=== PATIENT | male | born 1950 | race Caucasian/White ===

== ENCOUNTER 2022-07-05 10:41 | Inpatient (IN) | payer MEDICARE ==
[2022-06-29 12:37] LABS: ALBUMIN 3.2 G/DL (3.4-5.0); ALKALINE PHOSPHATASE 92 IU/L (46-116); BLOOD UREA NITROGEN 23 MG/DL (7-18); BUN/CREATININE RATIO 19.3 (5.4-32.0); CALCIUM 9.1 MG/DL (8.5-10.1); CHLORIDE 106 MMOL/L (99-107); CREATININE 1.19 MG/DL (0.60-1.10); PRE OP ALT 25 U/L (30-65); PRE OP ANION GAP 9 (8-16); PRE OP AST 18 U/L (10-37); PRE OP BILIRUB, TOTAL 0.3 MG/DL (0.0-1.0); PRE OP GLUCOSE 118 MG/DL (70-104); PRE OP POTASSIUM 4.2 MMOL/L (3.4-5.1); PRE OP SODIUM 141 MMOL/L (135-145); TOTAL CARBON DIOXIDE 25.6 MMOL/L (24-32); TOTAL PROTEIN 6.5 G/DL (6.4-8.2); eGFR 60 ML/MIN
[2022-06-29 12:46] LABS: BASOPHILS # (AUTO) 0.1 X10'3 (0-0.2); EOSINOPHILS # (AUTO) 0.2 X10'3 (0-0.9); EOSINOPHILS % (AUTO) 2.3 % (0-6); LYMPHOCYTES # (AUTO) 1.7 X10'3 (1.1-4.8); LYMPHOCYTES % (AUTO) 25.2 % (21-51); MEAN CORPUSCULAR HEMOGLOBIN 31.8 PG (27.0-31.0); MEAN CORPUSCULAR HGB CONC 32.8 g/dL (33.0-36.5); MEAN PLATELET VOLUME 9.5 FL (7.4-10.4); MONOCYTES # (AUTO) 0.5 X10'3 (0-0.9); MONOCYTES % (AUTO) 7.3 % (2-12); NEUTROPHILS # (AUTO) 4.3 X10'3 (1.8-7.7); NEUTROPHILS % (AUTO) 64.2 % (42-75); PRE OP HEMATOCRIT 39.6 % (42.0-52.0); PRE OP PLATELET COUNT 227 X10'3 (140-440); RED BLOOD COUNT 4.08 X10'6 (4.70-6.10); RED CELL DISTRIBUTION WIDTH 14.5 % (11.5-14.5)
[2022-06-29 12:56] LABS: HEMOGLOBIN A1C 6.2 % (4.5-6.2)
[2022-07-05] VITALS (17 sets, daily range): BP systolic 109–136; BP diastolic 52–78
[~2022-07-05] VITALS: Ht 165.1 cm; Wt 124.6 kg
[~2022-07-05 10:41] MED LIST: ATOR40TA PO; CHOL50004 PO; CYAN50009 PO; IRON PO; MALTODEXTRIN/FRUCTOSE 0.68 KCAL/ML LIQUID 296ML BOTTLE PO ONE; METF-436 PO; PIOG15TA8 PO; [UNRECOGNIZED DRUG - OTHER] PO; ceFOXitin 2GM-NS 100mL ADDvant 100 ML IV ONE; famotidine 20mg tablet PO ONE; heparin, porcine 5000 units/ml vial SQ ONE; metroNIDAZOLE-Flagyl 500mg/NS 100ML IVPB IV ONE; ringers solution, lacted 1,000 ML IV SCH
--- NOTE | 2022-07-05 11:00 | NUR ---
PATIENT PREPARED FOR SURGERY, HE DRANK HIS ENSURE DRINK UPON ARRIVAL. IV STARTED WITHOUT DIFFICULTY IN LEFT HAND. PT STATES HE COMPLETED HIS BOWEL PREP AT 6 AM. HE CAME VIA UBER FROM THE [facility]. HIS FRIEND/PARTNER IS THERE WAITING FOR HIM UPON DISCHARGE, HE WILL NEED TO TAKE AN UBER BACK TO THE [place]EL AND SHE WILL DRIVE HOME. SHE DID NOT FEEL COMFORTABLE DRIVING AROUND THE HOSPITAL. PT STATES HE HAS MINIMAL HELP AT HOME. rEQUESTING DRIVERS' CASH CLERK CONSULT. PT HAS A LARGE ABDOMEN, WITH A LARGE BULGING UMBILICAL HERNIA PRESENT. WILL PLACE DRIVERS' CASH CLERK CONSULT. PT RELAXING WATCHING TELEVISION AWAITING SURGEON.
[2022-07-05] MEDS ORDERED: BUPIVAcaine 0.5% inj/PF 30 ML ONE (15:56)
[2022-07-05] MEDS ORDERED: LIDOCAINE 1%/EPI 1:100,000 inj. 10 ML multi-dose vial ONE (15:56)
[2022-07-05] MEDS ORDERED: tobramycin 40mg/ml inj ONE (15:58)
[2022-07-05] MEDS ORDERED: ringers solution, lacted 1,000 ML IV SCH (16:00)
[2022-07-05] MEDS ORDERED: proCHLORperazine 10 MG/2 ml inj IV PRN (16:00)
[2022-07-05] MEDS ORDERED: morphine 2 MG/ML inj. syringe IV PRN (16:00)
[2022-07-05] MEDS ORDERED: ondansetron/PF 4mg/2ml inj IV PRN (16:00)
[2022-07-05] MEDS ORDERED: morphine 4 MG/ML inj SYRINge IV PRN (16:00)
[2022-07-05] MEDS ORDERED: meperidine/PF 25mg/ml syringe IV PRN ×3 (16:00)
[2022-07-05] MEDS ORDERED: midazolam 1 mg/ML 2ml injection ONE (16:02)
[2022-07-05] MEDS ORDERED: fentaNYL /PF 50mcg/ml 5ml ampule ONE (16:02)
[2022-07-05] MEDS ORDERED: glycopyrrolate 0.2mg/ml inj ONE (16:12)
[2022-07-05] MEDS ORDERED: LIDOcaine 2% (20mg/ml) 5ml vial ONE (16:12)
[2022-07-05] MEDS ORDERED: dexamethasone sod phosphate 10mg/ml inj ONE (16:12)
[2022-07-05] MEDS ORDERED: sevoflurane 250ml liquid IH ONE (16:12)
[2022-07-05] MEDS ORDERED: propofol 10mg/ml 20ml vial IV ONE (16:12)
[2022-07-05] MEDS ORDERED: ondansetron/PF 4mg/2ml inj ONE (16:12)
[2022-07-05] MEDS ORDERED: neostigmine methylsulfate 1 MG/ML 10ml vial ONE (16:12)
[2022-07-05] MEDS ORDERED: rocuronium 10mg/ml inj IV ONE ×2 (16:17→16:54)
[2022-07-05] MEDS ORDERED: BUPIVAcaine 0.5% inj/PF 30 ml vial IJ ONE (17:43)
[2022-07-05] MEDS ORDERED: albumin (Human) 5% 250ml 250 ML IV ONE (18:53)
[2022-07-05] MEDS ORDERED: acetaminophen 1,000mg/100ml IV 100 ML IV ONE (18:53)
[2022-07-05] MEDS ORDERED: meperidine/PF 25mg/ml syringe ONE (19:01)
[2022-07-05] MEDS ORDERED: dextrose 50%-water 50ml dispensing syringe IV PRN ×2 (20:20)
[2022-07-05] MEDS ORDERED: naloxone 0.4 mg/ml inj IV PRN ×2 (20:20→20:35)
[2022-07-05] MEDS ORDERED: MESSAGE TO PHARMACY PO ONE (20:20)
[2022-07-05] MEDS ORDERED: glucagon, human recombinant 1mg kit SUBCUT PRN (20:20)
[2022-07-05] MEDS ORDERED: DEXTROSE 15 GM of carb/4 tabs (each vial/BOTTLE has 4 tablets) PO PRN ×2 (20:20)
[2022-07-05] MEDS ORDERED: PCA waste documentation MC SCH (20:35)
--- NOTE | 2022-07-05 20:42 | NUR ---
Received from OR via or bed , accompanied by Anesthesiologist and report given by Anesthesiologist. PATIENT A&OX4, drowsy, DENIES PAIN, V/S WNL, SCD ON , PIV 20G left hand 4 incision SITES CLOSED CDI TO ABDOMEN. F/C DRAINING CLEAR YELLOW URINE.
--- NOTE | 2022-07-05 20:44 | NUR ---
blood sugar 155
[2022-07-05] MEDS: HYDROmorph/NS 0.2 mg/ml PCA 100 ML IV SCH ×2 (20:56→23:00)
[2022-07-05] MEDS ORDERED: HYDROmorph/NS 0.2 mg/ml PCA 100 ML IV SCH (21:00)
--- NOTE | 2022-07-05 21:28 | NUR ---
REPORT CALLED TO SUDARSHAN SPRAGUE, PT TRANSFERRED WITH TRANSPORTER TO [facility] IN STABLE CONDITION. VITAL SIGNS STABLE, DRESSING DRY AND INTACT, IV INTACT NO SIGNS OF INFILTRATION
--- NOTE | 2022-07-05 21:45 | NUR ---
received pt from recovery room via bed, oriented to room and routine, dressing to abd cd&i Addendum: 07/06/22 at 0747 by Alejandra Ann RN Amended: Links added.
[2022-07-06] VITALS (7 sets, daily range): BP systolic 122–148; BP diastolic 53–81
[2022-07-06] MEDS: ceFOXitin inj 1,000 MG in normal saline 100ml IV soln 100 ML IV SCH ×2 (00:43→06:46)
[2022-07-06] MEDS: potassium CL 20mEq in D5-1/2NS 1,000 ML IV SCH ×2 (00:44→15:53)
[2022-07-06] MEDS: normal saline 1000ml 1,000 ML IV SCH (00:57)
[2022-07-06] MEDS: atorvastatin 20mg tablet PO SCH ×2 (00:58→21:16)
[2022-07-06] MEDS: HYDROmorph/NS 0.2 mg/ml PCA 100 ML IV SCH ×12 (01:00→23:00)
[2022-07-06] MEDS: metroNIDAZOLE-Flagyl 500mg/NS 100 ML IV SCH ×3 (01:41→15:48)
--- NOTE | 2022-07-06 06:00 | NUR ---
Patient in room [facility]. I have received report from Daphne SPRAGUE and had the opportunity to ask questions and assume patient care.
--- NOTE | 2022-07-06 06:30 | NUR ---
Problems reprioritized. Patient report given, questions answered & plan of care reviewed with CELESTINE Stanley. Addendum: 07/06/22 at 0749 by Alejandra Ann RN Amended: Links added.
[2022-07-06 07:22] LABS: BASOPHILS % (AUTO) 0.1 % (0-1); EOSINOPHILS % (AUTO) 0 % (0-6); HEMATOCRIT 38.6 % (42.0-52.0); LYMPHOCYTES # (AUTO) 0.7 X10'3 (1.1-4.8); LYMPHOCYTES % (AUTO) 8.2 % (21-51); MEAN CORPUSCULAR HEMOGLOBIN 32.6 PG (27.0-31.0); MEAN CORPUSCULAR HGB CONC 33.6 g/dL (33.0-36.5); MEAN CORPUSCULAR VOLUME 96.8 FL (78-98); MEAN PLATELET VOLUME 9.7 FL (7.4-10.4); MONOCYTES # (AUTO) 0.5 X10'3 (0-0.9); MONOCYTES % (AUTO) 5.9 % (2-12); NEUTROPHILS # (AUTO) 7.5 X10'3 (1.8-7.7); NEUTROPHILS % (AUTO) 85.8 % (42-75); PLATELET COUNT 179 X10'3 (140-440); RED BLOOD COUNT 3.99 X10'6 (4.70-6.10); WHITE BLOOD COUNT 8.7 X10'3 (4.5-11.0)
[2022-07-06 07:42] LABS: GLUCOSE 206 MG/DL (70-104); SODIUM 137 MMOL/L (135-145)
[2022-07-06 07:43] LABS: ALBUMIN 2.8 G/DL (3.4-5.0); ANION GAP 10 (8-16); BLOOD UREA NITROGEN 16 MG/DL (7-18); BUN/CREATININE RATIO 13.4 (5.4-32.0); CALCIUM 8.5 MG/DL (8.5-10.1); CHLORIDE 106 MMOL/L (99-107); CREATININE 1.19 MG/DL (0.60-1.10); POTASSIUM 4.4 MMOL/L (3.5-5.1); eGFR 60 ML/MIN
[2022-07-06] MEDS ORDERED: docusate sod 100mg capsule PO SCH (08:00)
[2022-07-06] MEDS: sennosides/docusate sodium tablet PO SCH ×2 (08:00→21:26)
[2022-07-06] MEDS: heparin, porcine 5000 units/ml vial SQ SCH ×2 (08:00→21:19)
[2022-07-06] MEDS: docusate sod 100mg capsule PO SCH ×2 (08:01→21:16)
--- NOTE | 2022-07-06 16:35 | NUR ---
patient ambulated x2 600ft total. BS hypoactive, has not passed gas yet . tolerating small amounts of clear liquids. dressings to abdomen CDI. Continues with dilaudid cadd controlling pain well. will continue to monitor
--- NOTE | 2022-07-06 18:49 | NUR ---
seen by Dr monroe. fluids adjusted. patient advanced to full lqd. report given to Gerardo SPRAGUE
--- NOTE | 2022-07-06 18:50 | NUR ---
Patient in room [facility]. I have received report from ZAY SPRAGUE and had the opportunity to ask questions and assume patient care.
[2022-07-07] MEDS: HYDROmorph/NS 0.2 mg/ml PCA 100 ML IV SCH ×12 (01:00→23:00)
[2022-07-07] MEDS: potassium CL 20mEq in D5-1/2NS 1,000 ML IV SCH ×2 (01:06→13:24)
[2022-07-07 06:00] VITALS: BP 169/76
--- NOTE | 2022-07-07 06:30 | NUR ---
Problems reprioritized. Patient report given, questions answered & plan of care reviewed with CANDIDO SPRAGUE.
[2022-07-07] MEDS: ondansetron/PF 4mg/2ml inj IV PRN ×2 (06:40→14:39)
--- NOTE | 2022-07-07 06:47 | NUR ---
Patient in room [facility]. I have received report from Kylee Pichardo and had the opportunity to ask questions and assume patient care.
[2022-07-07 07:08] LABS: BASOPHILS # (AUTO) 0.1 X10'3 (0-0.2); BASOPHILS % (AUTO) 0.7 % (0-1); EOSINOPHILS # (AUTO) 0.1 X10'3 (0-0.9); EOSINOPHILS % (AUTO) 0.9 % (0-6); HEMATOCRIT 36.9 % (42.0-52.0); HEMOGLOBIN 12.5 g/dl (14.0-17.9); LYMPHOCYTES # (AUTO) 1.2 X10'3 (1.1-4.8); LYMPHOCYTES % (AUTO) 14.1 % (21-51); MEAN CORPUSCULAR HEMOGLOBIN 32.7 PG (27.0-31.0); MEAN CORPUSCULAR HGB CONC 33.9 g/dL (33.0-36.5); MEAN CORPUSCULAR VOLUME 96.5 FL (78-98); MEAN PLATELET VOLUME 9.8 FL (7.4-10.4); MONOCYTES # (AUTO) 0.9 X10'3 (0-0.9); MONOCYTES % (AUTO) 10.1 % (2-12); NEUTROPHILS # (AUTO) 6.4 X10'3 (1.8-7.7); NEUTROPHILS % (AUTO) 74.2 % (42-75); PLATELET COUNT 165 X10'3 (140-440); RED BLOOD COUNT 3.82 X10'6 (4.70-6.10); RED CELL DISTRIBUTION WIDTH 13.9 % (11.5-14.5); WHITE BLOOD COUNT 8.6 X10'3 (4.5-11.0)
[2022-07-07] MEDS: sennosides/docusate sodium tablet PO SCH ×2 (07:34→20:00)
[2022-07-07] MEDS: docusate sod 100mg capsule PO SCH ×2 (07:34→20:00)
[2022-07-07] MEDS: heparin, porcine 5000 units/ml vial SQ SCH ×2 (07:35→22:00)
[2022-07-07 08:14] LABS: ALBUMIN 2.8 G/DL (3.4-5.0); ANION GAP 8 (8-16); BLOOD UREA NITROGEN 11 MG/DL (7-18); BUN/CREATININE RATIO 9.6 (5.4-32.0); CALCIUM 8.3 MG/DL (8.5-10.1); CHLORIDE 106 MMOL/L (99-107); CREATININE 1.14 MG/DL (0.60-1.10); GLUCOSE 183 MG/DL (70-104); POTASSIUM 3.9 MMOL/L (3.5-5.1); SODIUM 139 MMOL/L (135-145); TOTAL CARBON DIOXIDE 24.7 MMOL/L (24-32); eGFR 63 ML/MIN
[2022-07-07] MEDS: insulin Lispro (HumaLOG) vial - multi-dose SQ SCH ×2 (08:50→13:27)
[2022-07-07 10:00] VITALS: BP 156/80
[2022-07-07] MEDS ORDERED: calcium carbonate 500mg chew tablet PO PRN ×2 (15:45)
[2022-07-07] MEDS: proCHLORperazine 10 MG/2 ml inj IV PRN ×2 (16:24→22:35)
[2022-07-07 18:00] VITALS: BP 146/74
--- NOTE | 2022-07-07 18:30 | NUR ---
Patient in room [facility]. I have received report from CANDIDO SPRAGUE and had the opportunity to ask questions and assume patient care.
[2022-07-07] MEDS: normal saline 1000ml 1,000 ML IV SCH (20:20)
[2022-07-07] MEDS: atorvastatin 20mg tablet PO SCH (21:59)
[2022-07-07 22:00] VITALS: BP 155/79
[2022-07-08] MEDS: HYDROmorph/NS 0.2 mg/ml PCA 100 ML IV SCH ×12 (01:00→23:00)
--- NOTE | 2022-07-08 06:15 | NUR ---
Problems reprioritized. Patient report given, questions answered & plan of care reviewed with TIMOTHY SPRAGUE.
[2022-07-08 07:00] VITALS: BP 121/70
[2022-07-08 07:29] LABS: BASOPHILS # (AUTO) 0.1 X10'3 (0-0.2); BASOPHILS % (AUTO) 0.8 % (0-1); EOSINOPHILS # (AUTO) 0.2 X10'3 (0-0.9); EOSINOPHILS % (AUTO) 2.5 % (0-6); HEMATOCRIT 37.3 % (42.0-52.0); HEMOGLOBIN 12.6 g/dl (14.0-17.9); LYMPHOCYTES # (AUTO) 1.3 X10'3 (1.1-4.8); LYMPHOCYTES % (AUTO) 17.8 % (21-51); MEAN CORPUSCULAR HEMOGLOBIN 32.7 PG (27.0-31.0); MEAN CORPUSCULAR HGB CONC 33.9 g/dL (33.0-36.5); MEAN CORPUSCULAR VOLUME 96.6 FL (78-98); MEAN PLATELET VOLUME 9.9 FL (7.4-10.4); MONOCYTES # (AUTO) 0.8 X10'3 (0-0.9); MONOCYTES % (AUTO) 10.8 % (2-12); NEUTROPHILS % (AUTO) 68.1 % (42-75); PLATELET COUNT 155 X10'3 (140-440); RED BLOOD COUNT 3.87 X10'6 (4.70-6.10); RED CELL DISTRIBUTION WIDTH 13.8 % (11.5-14.5); WHITE BLOOD COUNT 7.3 X10'3 (4.5-11.0)
[2022-07-08 07:33] LABS: ALBUMIN 2.4 G/DL (3.4-5.0); BLOOD UREA NITROGEN 10 MG/DL (7-18); BUN/CREATININE RATIO 9.1 (5.4-32.0); CALCIUM 8.4 MG/DL (8.5-10.1); GLUCOSE 148 MG/DL (70-104); TOTAL CARBON DIOXIDE 27.5 MMOL/L (24-32); eGFR 65 ML/MIN
[2022-07-08 08:30] LABS: ANION GAP 6 (8-16); CHLORIDE 108 MMOL/L (99-107); POTASSIUM 3.9 MMOL/L (3.5-5.1); SODIUM 141 MMOL/L (135-145)
[2022-07-08] MEDS: docusate sod 100mg capsule PO SCH ×2 (08:37→19:15)
[2022-07-08] MEDS: sennosides/docusate sodium tablet PO SCH ×2 (08:37→19:16)
[2022-07-08] MEDS: heparin, porcine 5000 units/ml vial SQ SCH ×2 (08:37→19:16)
[2022-07-08 09:17] LABS: C-REACTIVE PROTEIN 9.33 MG/DL (0.0-0.5)
[2022-07-08] MEDS: potassium CL 20mEq in D5-1/2NS 1,000 ML IV SCH (14:05)
[2022-07-08] MEDS: insulin Lispro (HumaLOG) vial - multi-dose SQ SCH ×2 (14:12→19:24)
[2022-07-08] MEDS: atorvastatin 20mg tablet PO SCH (19:17)
[2022-07-08 22:00] VITALS: BP 131/79
[2022-07-09] MEDS: HYDROmorph/NS 0.2 mg/ml PCA 100 ML IV SCH ×5 (01:00→09:00)
[2022-07-09 06:00] VITALS: BP 117/50
[2022-07-09 06:17] LABS: BASOPHILS # (AUTO) 0.1 X10'3 (0-0.2); BASOPHILS % (AUTO) 0.9 % (0-1); EOSINOPHILS # (AUTO) 0.3 X10'3 (0-0.9); EOSINOPHILS % (AUTO) 4.7 % (0-6); HEMATOCRIT 36.9 % (42.0-52.0); HEMOGLOBIN 12.1 g/dl (14.0-17.9); LYMPHOCYTES # (AUTO) 1.9 X10'3 (1.1-4.8); LYMPHOCYTES % (AUTO) 26.6 % (21-51); MEAN CORPUSCULAR HEMOGLOBIN 31.7 PG (27.0-31.0); MEAN CORPUSCULAR HGB CONC 32.9 g/dL (33.0-36.5); MEAN CORPUSCULAR VOLUME 96.3 FL (78-98); MEAN PLATELET VOLUME 10.1 FL (7.4-10.4); MONOCYTES # (AUTO) 0.6 X10'3 (0-0.9); MONOCYTES % (AUTO) 9.3 % (2-12); NEUTROPHILS # (AUTO) 4.1 X10'3 (1.8-7.7); NEUTROPHILS % (AUTO) 58.5 % (42-75); PLATELET COUNT 174 X10'3 (140-440); RED BLOOD COUNT 3.83 X10'6 (4.70-6.10); RED CELL DISTRIBUTION WIDTH 13.8 % (11.5-14.5)
--- NOTE | 2022-07-09 06:17 | NUR ---
Problems reprioritized. Patient report given, questions answered & plan of care reviewed with Anh SPRAGUE. Addendum: 07/09/22 at 0618 by Heide Gardner RN Amended: Links added.
[2022-07-09 06:24] LABS: ALBUMIN 2.4 G/DL (3.4-5.0); ANION GAP 9 (8-16); BLOOD UREA NITROGEN 14 MG/DL (7-18); BUN/CREATININE RATIO 12.4 (5.4-32.0); CALCIUM 8.5 MG/DL (8.5-10.1); CHLORIDE 107 MMOL/L (99-107); CREATININE 1.13 MG/DL (0.60-1.10); GLUCOSE 136 MG/DL (70-104); POTASSIUM 3.9 MMOL/L (3.5-5.1); SODIUM 139 MMOL/L (135-145); TOTAL CARBON DIOXIDE 23.3 MMOL/L (24-32); eGFR 63 ML/MIN
[2022-07-09] MEDS: heparin, porcine 5000 units/ml vial SQ SCH (07:01)
[2022-07-09] MEDS: sennosides/docusate sodium tablet PO SCH (07:01)
[2022-07-09] MEDS: docusate sod 100mg capsule PO SCH (07:02)
[2022-07-09] MEDS: insulin Lispro (HumaLOG) vial - multi-dose SQ SCH ×2 (09:07→14:18)
--- NOTE | 2022-07-09 09:44 | NUR ---
Initial: Pt with colon CA currently POD #4 s/p laparoscopic right hemicolectomy with incarcerated umbilical hernia repair. While on liquid diet PO intake was overall poor however documented with 100% PO intake once advanced to regular diet meeting estimated nutrient needs. Recommend diet change to low fiber in view of recent GI surgery. [facility] 07/08, receiving routine bowel care. No nutrition intervention implemented at this time. Will continue to follow and make recommendations as appropriate. Recommendations: 1) Consider diet change to low fiber in view of recent GI surgery 2) Bowel care per physician 3) Weekly scaled weights Addendum: 07/09/22 at [address] Amended: Links added. Addendum: 07/09/22 at [address] CORRECTION: PT IS CURRENTLY ON A LOW FIBER DIET
--- NOTE | 2022-07-09 09:47 | NUR ---
Initial: Pt with colon CA currently POD #4 s/p laparoscopic right hemicolectomy with incarcerated umbilical hernia repair. While on liquid diet PO intake was overall poor however documented with 100% PO intake once advanced to low fiber diet meeting estimated nutrient needs. [facility] 07/08, receiving routine bowel care. No nutrition intervention implemented at this time. Will continue to follow and make recommendations as appropriate. Recommendations: 1) Continue low fiber diet in view of recent GI surgery 2) Bowel care per physician 3) Weekly scaled weights Addendum: 07/09/22 at [address] Amended: Links added.
[2022-07-09 10:00] VITALS: BP 116/73
[2022-07-09] MEDS ORDERED: HYDROcodone/acetaminophen 5mg/325mg tablet PO PRN (10:15)
[2022-07-09] MEDS ORDERED: DOCU100C40 PO (14:35)
--- NOTE | 2022-07-09 16:29 | NUR ---
pt very pleasant. awaiting discharge. independent with ADL's. Will continue to monitor pt.
--- NOTE | 2022-07-09 17:31 | NUR ---
PT DISCHARGED IN STABLE CONDITION. IV REMOVED TIP INTACT, NO COMPLICATIONS. PT EDUCATED ON DISCHARGE INSTRUCTIONS/FOLLOW UP. PT DISCHARGED VIA CAB TO HOME.
== END 2022-07-09 17:20 | disposition home or self-care (01) | DRG 330 ==
LOC: PAS IN 10:41 → SUR 3N 21:40
PROVIDERS: ADMIT Colon & Rectal Surgery; ATTEND Colon & Rectal Surgery
PROC: 0WQF4ZZ Repair Abdominal Wall, Percutaneous Endoscopic Approach (ICD-10-PCS; 2022-07-05)
PROC: 0DTF4ZZ Resection of Right Large Intestine, Percutaneous Endoscopic Approach (ICD-10-PCS; principal; 2022-07-05 16:12)
DX: C18.4 Malignant neoplasm of transverse colon (principal); K42.0 Umbilical hernia with obstruction, without gangrene; Z68.42 Body mass index [BMI] 45.0-49.9, adult; E78.00 Pure hypercholesterolemia, unspecified; D12.0 Benign neoplasm of cecum; K57.30 Diverticulosis of large intestine without perforation or abscess without bleeding; G47.33 Obstructive sleep apnea (adult) (pediatric); E11.9 Type 2 diabetes mellitus without complications; E66.9 Obesity, unspecified; I10 Essential (primary) hypertension; Z79.84 Long term (current) use of oral hypoglycemic drugs; Z79.899 Other long term (current) drug therapy
CPT/HCPCS: 36415; 71045; 80048; 80053; 82948; 83036; 85025; 86140; 86885; 86900; 86901; 87081; 93005; A4615; A4618; A6449; A7000; C1758; G0378; J0131; J0694; J0780; J1100; J1170; J1644; J1815; J2175; J2250; J2405; J2704; J2710; J3010; J3260; J3480; J3490; J7120; P9045; S0020